=== PATIENT | female | born 1975 | race Two or more races ===

== ENCOUNTER 2017-01-19 23:13 | Emergency (ER) | payer OTHER ==
[~2017-01-19] VITALS: Ht 167.6 cm; Wt 56.7 kg
--- NOTE | 2017-01-19 23:20 | NUR ---
PT BIB VIA [facility] C/O "HURT MY RT SIDE BACK DURING YOGA AND WENT TO [facility] AND MADE IT WORSE" PT AOX4 RR EVEN AND UNLABORED. NO SOB NOTED. NAD NOTED. NO NVD AT THIS TIME. PT NOT DIAPHORETIC. PT GOWNED AND PLACED ON MONITOR WAITING FOR MD JIMENES.
[2017-01-19] MEDS ORDERED: IV SET PRIMARY 1 EA INFUS.SET MC ONE (23:40)
[2017-01-19] MEDS ORDERED: KETOROLAC TROMETHAMINE INJ 30 MG/ML VIAL ONE (23:40)
[2017-01-19] MEDS ORDERED: DIAZEPAM 5 MG/ML 2 ML DISP.SYRIN ONE (23:40)
[2017-01-19] MEDS ORDERED: IV NS 0.9% 1,000 ML ONE (23:41)
[2017-01-19 23:49] LABS: BASOPHILS % (AUTO) 0.3 % (0.0-2.0); EOSINOPHILS # (AUTO) 0.3 /CMM (0.0-0.7); EOSINOPHILS % (AUTO) 2.6 % (0.0-6.0); HEMATOCRIT 39 % (33-45); HEMOGLOBIN 13.1 g/dL (11.5-14.8); LYMPHOCYTES # (AUTO) 3.5 /CMM (0.8-4.8); LYMPHOCYTES % (AUTO) 35.9 % (20.0-44.0); MEAN CORPUSCULAR HEMOGLOBIN 30 PG (26.0-33.0); MEAN CORPUSCULAR HGB CONC 33 g/dl (31.0-36.0); MEAN CORPUSCULAR VOLUME 90 fL (82-100); MONOCYTES # (AUTO) 0.6 /CMM (0.1-1.30); MONOCYTES % (AUTO) 6.4 % (2.0-12.0); NEUTROPHILS # (AUTO) 5.3 /CMM (1.8-8.9); NEUTROPHILS % (AUTO) 54.8 % (43.0-81.0); PLATELET COUNT (AUTO) 275 /CMM (150-450); RDW COEFFICIENT OF VARIATION 12.8 (11.5-15.0); RED BLOOD CELL COUNT(AUTO) 4.36 MIL/uL (4.0-5.2); WHITE BLOOD COUNT (AUTO) 9.7 K/uL (4.3-11.0)
[2017-01-20] MEDS ORDERED: KETOROLAC TROMETHAMINE INJ 30 MG/ML VIAL IV ONE
[2017-01-20] MEDS ORDERED: DIAZEPAM 5 MG/ML 2 ML DISP.SYRIN IV ONE
[2017-01-20] MEDS ORDERED: IV NS 0.9% 1,000 ML BAG IV ONE
[2017-01-20 00:01] LABS: CALCIUM, SERUM 8.7 mg/dL (8.5-10.1); CREATININE 0.9 mg/dL (0.6-1.3); POTASSIUM 3.7 mmol/L (3.5-5.1)
[2017-01-20 00:08] LABS: ALBUMIN 3.6 g/dL (3.4-5.0); BILIRUBIN,DIRECT 0.1 mg/dL (0.0-0.2); BILIRUBIN,TOTAL 0.4 mg/dL (0.2-1.0); TOTAL PROTEIN, SERUM 6.6 g/dL (6.4-8.2)
--- NOTE | 2017-01-20 00:30 | NUR ---
DR. DWYER AT BEDSIDE SPEAKING TO PT REGARDING POC/ RESULTS
[2017-01-20] MEDS ORDERED: HYDROCODONE/APAP 10/325MG 1 EA TABLET ONE (00:39)
[2017-01-20] MEDS ORDERED: ONDANSETRON 4 MG TAB.RAPDIS ONE (00:39)
--- NOTE | 2017-01-20 00:47 | NUR ---
IV removed. Catheter intact and site benign. Pressure and 4x4 applied to site. No bleeding noted. Patient discharged to home in stable condition. Written and verbal after care instructions given. Patient verbalizes understanding of instruction. ambulatory with a steady gait. pt request to be w/c. instructed not to drive. pt verbalize understanding.
[2017-01-20 00:48] VITALS: BP 117/77
[2017-01-20] MEDS ORDERED: ONDANSETRON 4 MG TAB.RAPDIS SL ONE (01:00)
[2017-01-20] MEDS ORDERED: HYDROCODONE/APAP 10/325MG 1 EA TABLET PO ONE (01:00)
== END 2017-01-20 00:49 | disposition home or self-care (01) ==
LOC: ER 23:14
DX: M62.830 Muscle spasm of back (principal); Z91.013 Allergy to seafood
CPT/HCPCS: 36415; 80048; 80076; 83690; 84703; 85025; 96361; 96374; 96375; 99284; A4606; J1885; J3360; J7030; Q0162; Z7610